=== PATIENT | male | born 2000 | race Caucasian/White ===

== ENCOUNTER 2020-12-06 10:39 | Emergency (ER) | payer OTHER ==
[2020-12-06 10:51] VITALS: TEMP 98.1; BMI 29.8
[2020-12-06 12:57] VITALS: BP 144/74; PULSE 100
== END 2020-12-06 12:57 | disposition home or self-care (01) ==
LOC: JER 10:39
DX: R06.02 Shortness of breath (principal); J06.9 Acute upper respiratory infection, unspecified; Z11.52 Encounter for screening for COVID-19
CPT/HCPCS: 71046-TC-FY; 99284-25; C9803; U0003; U0005